=== PATIENT | female | born 1970 | race Caucasian/White ===

== ENCOUNTER 2018-10-02 23:10 | Emergency (ER) | payer OTHER ==
[~2018-10-02] VITALS: Ht 154.9 cm; Wt 68.0 kg
--- NOTE | 2018-10-02 23:38 | NUR ---
BIB FOR C/O L CHEST PAIN RADIATING TO THE L BREAST X 2 DAYS. HAD 600MG OF IBUPROFEN AT 2200. PLACED ON A MONITOR . VSS. WILL CONT TO MONITOR ,
[2018-10-03] MEDS ORDERED: oxyCODONE/APAP (5/325 MG) 1 UDTAB TABLET ONE (00:22)
[2018-10-03] MEDS ORDERED: ONDANSETRON HCL/PF 4 MG/2 ML VIAL ONE (00:22)
[2018-10-03] MEDS ORDERED: NITROGLYCERIN PACKET 1 GM PACKET ONE (00:22)
[2018-10-03] MEDS ORDERED: ASPIRIN 81 MG TAB.CHEW ONE (00:22)
[2018-10-03] MEDS ORDERED: ASPIRIN 81 MG TAB.CHEW PO ONE (00:30)
[2018-10-03] MEDS ORDERED: ONDANSETRON HCL/PF 4 MG/2 ML VIAL IVP ONE (00:30)
[2018-10-03] MEDS ORDERED: NITROGLYCERIN PACKET 1 GM PACKET TD ONE (00:30)
[2018-10-03] MEDS ORDERED: oxyCODONE/APAP (5/325 MG) 1 UDTAB TABLET PO ONE (00:30)
[2018-10-03 00:36] LABS: BASOPHILS % (AUTO) 0.2 % (0.0-2.0); EOSINOPHILS % (AUTO) 2.1 % (0.0-6.0); HEMATOCRIT 39 % (33-45); HEMOGLOBIN 13.1 g/dL (11.5-14.8); LYMPHOCYTES # (AUTO) 2.5 /CMM (0.8-4.8); MEAN CORPUSCULAR HGB CONC 34 g/dl (31.0-36.0); MEAN CORPUSCULAR VOLUME 91 fL (82-100); MONOCYTES # (AUTO) 0.7 /CMM (0.1-1.30); MONOCYTES % (AUTO) 7.6 % (2.0-12.0); NEUTROPHILS # (AUTO) 5.9 /CMM (1.8-8.9); NEUTROPHILS % (AUTO) 63.1 % (43.0-81.0); PLATELET COUNT (AUTO) 244 /CMM (150-450); RED BLOOD CELL COUNT(AUTO) 4.25 MIL/uL (4.0-5.2); WHITE BLOOD COUNT (AUTO) 9.3 K/uL (4.3-11.0)
[2018-10-03 00:46] LABS: CARBON DIOXIDE 26 mmol/L (21-32); CHLORIDE 105 mmol/L (98-107); CREATININE 0.7 mg/dL (0.6-1.3); GLUCOSE 108 mg/dL (74-106); POTASSIUM 3.7 mmol/L (3.5-5.1); SODIUM SERUM 141 mmol/L (136-145); UREA NITROGEN, BLOOD 16 mg/dL (7-18)
[2018-10-03 00:59] LABS: ALANINE AMINOTRANSFERASE 23 U/L (12-78); ALBUMIN 3.8 g/dL (3.4-5.0); ALKALINE PHOSPHATASE 70 U/L (46-116); ASPARTATE AMINOTRANSFERASE 15 U/L (15-37); B-TYPE NATRIURETIC PEPTIDE 11 PG/ML (0-125); BILIRUBIN,TOTAL 0.2 mg/dL (0.2-1.0); TOTAL PROTEIN, SERUM 7.5 g/dL (6.4-8.2)
--- NOTE | 2018-10-03 01:21 | NUR ---
RESTING IN BED AWAKE AND ALERT. REPORTED FELING BETTER, AND PAIN REDUCED.
--- NOTE | 2018-10-03 03:52 | NUR ---
RWSTING IN BED AWAKE AND ALERT. REPORT FEELING BETTER AND ONLY HAS PAIN WHEN SHE LAYS ON HER L SIDE. VSS. WILL CONT TO MONITOR,
--- NOTE | 2018-10-03 04:40 | NUR ---
IV removed. Catheter intact and site benign. Pressure and 4x4 applied to site. No bleeding noted. Patient discharged to home in stable condition. Rx and Written and verbal after care instructions given. Patient verbalizes understanding of instruction.
[2018-10-03 04:41] VITALS: BP 110/62
--- NOTE | 2018-10-03 04:41 | NUR ---
PICKED UP THE PT
== END 2018-10-03 04:42 | disposition home or self-care (01) ==
LOC: ER 23:14
DX: R09.1 Pleurisy (principal); R07.81 Pleurodynia; Z98.890 Other specified postprocedural states
CPT/HCPCS: 36415; 71045; 80048; 80076; 83880; 84484 ×2; 85025; 93005 ×2; 96374; 99284; J2405